=== PATIENT | female | born 1975 | race Caucasian/White ===

== ENCOUNTER 2017-01-14 18:02 | Emergency (ER) | payer BC ==
--- NOTE | 2017-01-14 19:36 | EDM.PDOC ---
ED HPI GENERAL MEDICAL PROBLEM - General Chief Complaint: Genitourinary Problem Stated Complaint: POSSIBLE UTI/PELVIC PAIN Time Seen by Provider: 01/14/17 19:35 Source of Information: Reports: Patient History Limitations: Reports: No Limitations - History of Present Illness INITIAL COMMENTS - FREE TEXT/NARRATIVE: HISTORY AND PHYSICAL: History of present illness: [Patient comes to the emergency room complaining of urinary urgency for the past 5 years. She does not have a local PCP but she follows with a homeopathic doctor in [place]. Patient notices every month she experiences urinary urgency. This lasts for a couple of days and symptoms improve significantly with Cystec, which she takes with every episode. She does not experience any other symptoms of UTI. She denies hematuria, burning with urination, urinary frequency and hesitancy. She does not experience abdominal pain or low back pain. No fever or chills. Denies vaginal discharge. Current episode began on January 13 and she has experienced typical symptom of urgency. She took Cystec last night and feels significantly improved today. She presents to the emergency room stating that she knows her symptoms or not an emergency but she does not know how to proceed in having this evaluated. She has no other complaints or concerns at this time. History of 1 miscarriage in 2007, followed by surgical sterilization. No other surgeries or hospitalizations. ] Review of systems: As per history of present illness and below otherwise all systems reviewed and negative. Past medical history: As per history of present illness and as reviewed below otherwise noncontributory. Surgical history: As per history of present illness and as reviewed below otherwise noncontributory. Social history: No reported history of drug or alcohol abuse. Family history: As per history of present illness and as reviewed below otherwise noncontributory. Physical exam: HEENT: Atraumatic, normocephalic. mucous membranes moist. Abdomen: Soft, nondistended, nontender. Negative for masses guarding and rebound. Negative for costovertebral tenderness. Pelvis: Stable nontender. Genitourinary: Deferred. Rectal: Deferred. Extremities: Atraumatic, negative for cords or calf pain. Neuro: Awake, alert, oriented. Motor and sensory unremarkable throughout. Exam nonfocal. Diagnostics: [Urinalysis] Impression: [Urinary urgency] Plan: [Discussed with patient that her urinalysis is clear and does not show any infection. Discussed that there are other things that may cause urinary urgency and that she should establish care with a local primary care provider to discuss. She is in agreement with today's plan. all of her questions are answered and concerns are addressed. She is given a note stating that she was evaluated in the ER today and may return to work tomorrow without restrictions.] Definitive disposition and diagnosis as appropriate pending reevaluation and review of above. Abdomen Pain Score (Numeric/FACES): 6 - Related Data Allergies Allergy/AdvReac Type Severity Reaction Status Date / Time No Known Allergies Allergy Verified 01/14/17 20:10 Home Meds: Home Meds . 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 Musculoskeletal History: Reports: None Neurological History: Reports: None Psychiatric History: Reports: None Endocrine/Metabolic History: Reports: None Hematologic History: Reports: None Dermatologic History: Reports: None - Infectious Disease History Infectious Disease History: Reports: Chicken Pox - Past Surgical History Female Surgical History: Reports: None Social & Family History - Family History Family Medical History: Noncontributory - Tobacco Use Smoking Status *Q: Never Smoker - Recreational Drug Use Recreational Drug Use: No ED ROS GENERAL - Review of Systems Review Of Systems: ROS reveals no pertinent complaints other than HPI. ED EXAM, RENAL/ - Physical Exam Exam: See Below Course - Vital Signs Last Recorded V/S: Last Vital Signs Temp 98.0 F 01/14/17 18:42 Pulse 68 01/14/17 20:23 Resp 16 01/14/17 20:23 BP 121/80 01/14/17 20:23 Pulse Ox 98 01/14/17 20:23 - Orders/Labs/Meds Labs: Laboratory Tests 01/14/17 Range/Units 18:40 Urine Color YELLOW Urine Appearance CLEAR Urine pH 6.0 (5.0-8.0) Ur Specific [place] <= 1.005 (1.001-1.035) Urine Protein NEGATIVE (NEGATIVE) mg/dL Urine Glucose (UA) NEGATIVE (NEGATIVE) mg/dL Urine Ketones NEGATIVE (NEGATIVE) mg/dL Urine Occult Blood NEGATIVE (NEGATIVE) Urine Nitrite NEGATIVE (NEGATIVE) Urine Bilirubin NEGATIVE (NEGATIVE) Urine Urobilinogen 0.2 (<2.0) EU/dL Ur Leukocyte Esterase NEGATIVE (NEGATIVE) Urine RBC 0-1 (0-2/HPF) Urine WBC 0-2 (0-5/HPF) Ur Epithelial Cells FEW (NONE-FEW) Urine Bacteria FEW (NEGATIVE) Departure - Departure Time of Disposition: 20:05 Disposition: Home, Self-Care 01 Condition: Good Clinical Impression: Urinary urgency - Discharge Information Instructions: Dysuria Referrals: PCP,None [Primary Care Provider] - Forms: ED Department Discharge Additional Instructions: The following information is given to patients seen in the emergency department who are being discharged to home. This information is to outline your options for follow-up care. We provide all patients seen in our emergency department with a follow-up referral. The need for follow-up, as well as the timing and circumstances, are variable depending upon the specifics of your emergency department visit. If you don't have a primary care physician on staff, we will provide you with a referral. We always advise you to contact your personal physician following an emergency department visit to inform them of the circumstance of the visit and for follow-up with them and/or the need for any referrals to a consulting specialist. The emergency department will also refer you to a specialist when appropriate. This referral assures that you have the opportunity for follow-up care with a specialist. All of these measure are taken in an effort to provide you with optimal care, which includes your follow-up. Under all circumstances we always encourage you to contact your private physician who remains a resource for coordinating your care. When calling for follow-up care, please make the office aware that this follow-up is from your recent emergency room visit. If for any reason you are refused follow-up, please contact the [facility] emergency department at and asked to speak to the emergency department charge nurse. [address] [address] Establish care with a local primary care provider at the clinic listed above. Return to ER as needed as discussed.
[2017-01-14 20:28] VITALS: BP 121/80
== END 2017-01-14 20:23 | disposition home or self-care (01) ==
LOC: MW.ED 18:02
DX: R39.15 Urgency of urination (principal); Z87.440 Personal history of urinary (tract) infections
CPT/HCPCS: 81001; 99282; 99283